=== PATIENT | female | born 1935 | race Caucasian/White ===

== ENCOUNTER 2016-12-19 01:36 | Day surgery (SDCO) | payer MEDICARE, OTHER ==
[~2016-12-19] VITALS: Ht 162.6 cm; Wt 66.0 kg
[~2016-12-19 01:36] MED LIST: ARICEPT10 MG PO; ASPIRIN EC325 MG PO; CELEBREX100 MG PO; COLACE100 MG PO; EFFEXOR XR75 MG PO; LUMIGAN5 ML OU; MIRAPEX0.5 MG PO; PROTONIX40 MG PO; VERAPAMIL ER120 M1 PO
[2016-12-19 02:24] LABS: BASOPHIL 0.3 % (0-2); EOSINOPHIL 1.8 % (0-7); HGB 14.4 g/dl (12.5-16.0); LYMPHOCYTE 26.6 % (15-48); MCHC 33.5 g/dL (32.0-36.0); MCV 83.5 fL (78.0-100.0); MONOCYTE 10.2 % (0-12); MPV 10.5 fL (6.0-9.5); NEUTROPHIL 61.1 % (41-80); PLT 475 K/uL (150-400); RBC 5.15 M/uL (4.20-5.40); RDW 14.9 % (11.5-14.0); WBC 10.6 K/uL (4.0-10.5)
[2016-12-19 02:34] LABS: INR 0.96 (0.9-1.2); PROTHROMBIN TIME 12.4 SECONDS (11.7-14.0)
[2016-12-19 02:41] LABS: ALBUMIN 4.3 g/dL (3.4-4.8); BILIRUBIN - TOTAL 0.3 mg/dL (0.1-1.0); CREATININE 0.6 mg/dL (0.5-1.0); GLOBULIN (CALCULATION) 2.5 g/dL (2.2-4.2); MAGNESIUM 1.92 mg/dL (1.40-2.10); POTASSIUM 3.2 mmol/L (3.5-5.1); TOTAL PROTEIN 6.8 g/dL (6.4-8.3)
[2016-12-19 02:44] LABS: CKMB 1.32 ng/mL (0.97-4.94); MYOGLOBIN 24 ng/mL (26-65); PRO-BNP 196 pg/mL (0-450); TROPONIN T < 0.010 ng/mL
[2016-12-19 08:11] LABS: CKMB 1.31 ng/mL (0.97-4.94); TROPONIN T < 0.010 ng/mL
[2016-12-19] MEDS ORDERED: CARBIDOPA-LEVO1 EAC6 PO (14:14)
[2016-12-19] MEDS ORDERED: ASPIRIN EC81 MG PO (14:14)
== END 2016-12-19 11:05 | disposition home or self-care (01) ==
LOC: FER 01:36 → FTCU 03:15
PROVIDERS: Emergency Medicine Emergency Medical Services; ADMIT Internal Medicine
DX: R07.89 Other chest pain (principal); I10 Essential (primary) hypertension; G20 Parkinson's disease; G47.33 Obstructive sleep apnea (adult) (pediatric); F41.9 Anxiety disorder, unspecified; F03.90 Unspecified dementia, unspecified severity, without behavioral disturbance, psychotic disturbance, mood disturbance, and anxiety; J44.9 Chronic obstructive pulmonary disease, unspecified; K21.9 Gastro-esophageal reflux disease without esophagitis; M19.90 Unspecified osteoarthritis, unspecified site; H40.9 Unspecified glaucoma; Z90.710 Acquired absence of both cervix and uterus; Z98.1 Arthrodesis status; Z96.653 Presence of artificial knee joint, bilateral; Z98.41 Cataract extraction status, right eye; Z98.42 Cataract extraction status, left eye; Z98.890 Other specified postprocedural states; Z80.1 Family history of malignant neoplasm of trachea, bronchus and lung; Z82.49 Family history of ischemic heart disease and other diseases of the circulatory system; Z79.899 Other long term (current) drug therapy; Z87.891 Personal history of nicotine dependence
CPT/HCPCS: 36415; 71010; 80053; 82550; 82553; 83735; 83874; 83880; 84484; 85025; 85610; 85730; 87450; 87804; 87899; 93005; G0378